=== PATIENT | female | born 1945 | race Caucasian/White ===

== ENCOUNTER → 2017-03-02 | Outpatient (CLI) | payer OTHER, MEDICAID ==
[2017-03-02 16:00] LABS: Body Fluid Polymorphonuclear 7 %
== END | disposition home or self-care (01) ==
LOC: LAB 10:19
DX: M00.9 Pyogenic arthritis, unspecified (principal); M10.00 Idiopathic gout, unspecified site; M06.9 Rheumatoid arthritis, unspecified
CPT/HCPCS: 87205; 89051; 89060

== ENCOUNTER → 2017-05-08 | Outpatient (CLI) | payer OTHER, MEDICAID ==
[2017-05-08 09:44] LABS: Basophils # (auto) 0 uL; Basophils % (auto) 0.4 % (0.0-2.0); CONDITION Y; Eosinophils # (auto) 0.5 uL; Eosinophils % (auto) 4.9 % (0.0-7.0); Hematocrit 33.7 % (36.0-46.0); Hemoglobin 10.9 g/dL (12.2-16.2); Lymphocytes # (auto) 1.9 uL; Lymphocytes % (auto) 19.4 % (10.0-50.0); Mean Corpuscular Hemoglobin 28.4 pg (28.0-32.0); Mean Corpuscular Hgb Conc. 32.4 g/dL (32.0-36.0); Mean Corpuscular Volume 87.6 fL (80.0-100.0); Monocytes # (auto) 0.9 uL; Monocytes % (auto) 9.3 % (0.0-12.0); Neutrophils # (auto) 6.3 uL; Platelet Count (auto) 333 10^3/uL (140-450); Red Cell Distribution Width 16.1 % (11.6-16.0); White Blood Cell 9.6 10^3/uL (4.4-10.8)
[2017-05-08 09:57] LABS: Urine Bilirubin Negative (Negative); Urine Blood Negative /uL (Negative); Urine Color Yellow (Yellow); Urine Glucose Normal (Normal); Urine Ketone Negative (Negative); Urine Mucus FEW (None Seen); Urine RBC 4 /hpf (0 - 4); Urine Squamous Epithelial Cell FEW /hpf (<5); Urine Urobilinogen Normal (Negative); Urine WBC Clumps PRESENT /hpf (None Seen); Urine pH 5.5 (5.0-8.0)
[2017-05-08 10:00] LABS: Urine Nitrite POSITIVE (Negative)
[2017-05-08 10:04] LABS: Albumin 3.2 g/dL (3.4-5.0); BUN/Creatinine Ratio 16.2; Bilirubin, Total 0.2 mg/dL (0.2-1.0); Calcium 8.9 mg/dL (8.5-10.1); Potassium 4.1 mmol/L (3.5-5.1); Total Protein 6.6 g/dL (6.4-8.2)
== END | disposition home or self-care (01) ==
LOC: LAB 08:09
PROVIDERS: ATTEND Family Medicine
DX: E78.5 Hyperlipidemia, unspecified (principal); I10 Essential (primary) hypertension; J44.9 Chronic obstructive pulmonary disease, unspecified; M06.9 Rheumatoid arthritis, unspecified; M25.50 Pain in unspecified joint; D64.9 Anemia, unspecified; Z79.899 Other long term (current) drug therapy
CPT/HCPCS: 36415; 80053; 80061; 81001; 82306; 82607; 83036; 84443; 85025; 85652; 86141

== ENCOUNTER → 2017-08-22 | Outpatient (CLI) | payer OTHER, MEDICAID ==
[2017-08-22 15:31] LABS: Body Fluid Polymorphonuclear 55 %
== END | disposition home or self-care (01) ==
LOC: LAB 11:03
DX: M00.9 Pyogenic arthritis, unspecified (principal); M10.00 Idiopathic gout, unspecified site; M06.9 Rheumatoid arthritis, unspecified
CPT/HCPCS: 87205; 89051; 89060